=== PATIENT | female | born 1990 | race Caucasian/White ===

== ENCOUNTER 2016-06-11 20:44 | Emergency (ER) | payer OTHER, SELFPAY ==
[~2016-06-11 20:44] MED LIST: ACET50TA PO; DOCU10CA PO; DOCU10ELUD PO; IBUP80TA PO; PRENTAB9 PO; VITAPRTA PO
[2016-06-11] MEDS ORDERED: NAPROXEN 250 MG TAB As Ordered ONE (21:44)
--- NOTE | 2016-06-11 21:58 | EDDOCDS ---
Physician Documentation [facility] Name: Santa Carbajal Age: 25 yrs Sex: Female : 1990 Arrival Date: 06/11/2016 Time: 20:44 Bed I9 / Private MD: EMANI Farfan Disposition: 06/11 21:45 Critical Care: Critical care not applicable. le Disposition: 06/11/16 21:43 Discharged to Home/Self Care. Impression: Sprain of unspecified ligament of left ankle. - Condition is Stable. - Discharge Instructions: Elastic Bandage and RICE, Ankle Sprain. - Prescriptions for Naprosyn 500 mg Oral Tablet - take 1 tablet by ORAL route 2 times per day take with food; 30 tablet. - Medication Reconciliation, Isma Dejesus/Luis Alberto, Local Pharmacy Hours form. - Follow up: EMANI Farfan; When: 1 week; Reason: Recheck today's complaints, Continuance of care, If still having pain. - Problem is new. - Symptoms are unchanged. - Notes: Return to the ED for any further concerns Historical: - Allergies: no known allergies; - Home Meds: 1. Zoloft 25 mg Oral tab 1 tab once daily - PMHx: Depression; Anxiety; - PSHx: Hernia repair- Umbilical (April 19, 2015); ; Cholecystectomy; - Social history: Smoking status: Patient states was never smoker of tobacco. No barriers to communication noted. - Family history: Not pertinent. - : The pt / caregiver states he / she is not on anticoagulants. Home medication list is obtained from the patient. - Exposure Risk Screening:: None identified. 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 6 in. (167.64 cm) (R); Pain 6/10; 21:52 BP 146 / 70; Pulse 75; Resp 18; Temp 98.0; Pulse Ox 98% ; Pain 8/10; sew 20:46 Body Mass Index 35.19 (98.88 kg, 167.64 cm) gr2 MDM: 21:10 Ankle, Complete Ordered. EDMS 21:41 Naproxen 500 mg PO once; administer with food or milk ordered. le 21:41 Apply Air Cast to Patient. ordered. le Administered Medications: 21:45 Drug: Naproxen 500 mg [naproxen 250 mg tablet (2 tabs)] Route: PO; slm Signatures: Dispatcher [employer] EDMS Tracey Titus, POLYMER TESTER POLYMER TESTERMelanie Mcdonald RN RN Kasey Lund LPN LPN slm MTDD
--- NOTE | 2016-06-11 21:58 | EDDOCDS ---
Nurse's Notes [facility] Name: Santa Carbajal Age: 25 yrs Sex: Female : 1990 Arrival Date: 06/11/2016 Time: 20:44 Bed I9 Private MD: EMANI Farfan Diagnosis: Sprain of unspecified ligament of left ankle Presentation: 06/11 20:51 Presenting complaint: Patient states: I'm super clumsy and missed a step this after [facility] noon when I fell I fell awkward and twisted my left ankle. The patients lower extremity appears normal on examination. Adult Sepsis Screening: The patient does not have new or worsening altered mentation. Patient's respiratory rate is less than 22. Systolic blood pressure is greater than 100. Patient has a qSOFA score of 0- Negative Sepsis Screen. Suicide/Homicide risk assessment- the patient denies having any suicidal and/or homicidal ideations and does not present with any other emotional, behavioral or mental health complaints. Status: The patient is a dependent. Transition of care: patient was not received from another setting of care. 20:51 Acuity: TIA Level 4 [facility] 20:51 Method Of Arrival: Walkin/Carried/Asstd [facility] Triage Assessment: 20:53 General: Appears in no apparent distress, comfortable, Behavior is appropriate for age, [facility] cooperative. Pain: Location: left lateral ankle Pain currently is 8 out of 10 on a pain scale. HIV screening NA for this visit Offered previously. Musculoskeletal: Capillary refill is brisk No deformity noted Reports pain in left lateral ankle. Musculoskeletal: Range of motion limited in left ankle. 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 Zoloft 25 mg Oral tab 1 tab once daily - PMHx: Depression; Anxiety; - PSHx: Hernia repair- Umbilical (April 19, 2015); ; Cholecystectomy; - Social history: Smoking status: Patient states was never smoker of tobacco. No barriers to communication noted. - Family history: Not pertinent. - : The pt / caregiver states he / she is not on anticoagulants. Home medication list is obtained from the patient. - Exposure Risk Screening:: None identified. Screenin:56 Screening information is obtained from the patient. Fall risk: No risks identified. slm Assistance ADL's: requires no assistance with activities of daily living. Abuse/DV Screen: The patient / caregiver reports he/she is: not in a situation that causes fear, pain or injury. Nutritional screening: No deficits noted. Advance Directives: Currently, there is no health care proxy. There is no active DNR order. There is no living will. There is no Power of Kiln Car Unloader. Advance directive information has not previously been placed in an [facility] medical record. home support is adequate. Assessment: 21:55 General: Appears in no apparent distress, comfortable, Behavior is cooperative. Pain: slm Location: left ankle. Musculoskeletal: Circulation, motion, and sensation intact No deformity noted. 21:57 Musculoskeletal: Signs and Symptoms of Compartment Syndrome: no signs of compartment slm syndrome. Vital Signs: 20:46 BP 142 / 77; Pulse 96; Resp 18 S; Temp 98.8(O); Pulse Ox 99% on R/A; Weight 98.88 kg gr2 (R); Height 5 ft. 6 in. (167.64 cm) (R); Pain 6/10; 21:52 BP 146 / 70; Pulse 75; Resp 18; Temp 98.0; Pulse Ox 98% ; Pain 8/10; sew 20:46 Body Mass Index 35.19 (98.88 kg, 167.64 cm) gr2 Vitals: 20:46 Log In Time: June 11, 2016 at 20:46. gr2 ED Course: 20:45 Patient visited by Darlene Morton. gr2 20:45 Patient moved to Waiting gr2 20:46 ARUNA Farfan is Private Physician. gr2 20:49 Patient visited by Darlene Morton. gr2 20:49 Patient moved to Pre RCE gr2 20:52 Triage Initiated cjh 21:18 Patient moved to Radiology clive 21:26 Patient moved to I9 / sew 21:27 [facility] le 21:29 Patient visited by Tracey Titus FNP. le 21:29 Patient visited by Tracey Titus FNP. le 21:43 EMANI Farfan is Referral Physician. le 21:45 Kasey Madsen LPN is Primary Nurse. slm 21:51 Patient visited by Paige Morales. sew 21:53 Patient visited by Paige Morales. sew 21:57 Patient visited by Kasey Madsen LPN. slm 21:57 The patient / caregiver is instructed regarding the plan of care and ED course. Patient slm has correct armband on for positive identification. Bed in low position. Call light in reach. Side rails up X 1. 21:57 No IV's were initiated during this patient's visit. No procedures done that require slm assistance. Administered Medications: 21:45 Drug: Naproxen 500 mg [naproxen 250 mg tablet (2 tabs)] Route: PO; slm Order Results: There are currently no results for this order. Outcome: 21:43 Discharge ordered by Provider. le 21:56 Discharge Assessment: Patient awake, alert and oriented x 3. No cognitive and/or slm functional deficits noted. Patient verbalized understanding of disposition instructions. patient administered narcotics - no. The following High Risk Discharge criteria are identified:. Condition: good. Discharge instructions given to patient, Instructed on discharge instructions, follow up and referral plans. medication usage, Rest, Ice, Compression and Elevation. Demonstrated understanding of instructions, medications, Pt was receptive of discharge instructions/ teaching. Prescriptions given X 1. No special radiology studies were completed. Property :Personal belongings accompany Pt. 21:57 Patient left the ED. slm Signatures: Jens Dave Lisa, CLINICAL RESEARCH COORDINATOR CLINICAL RESEARCH COORDINATORMelanie Mcdonald RN RN [facility] Paige Morales [facility] Darlene Morton gr2 Kasey Madsen LPN LPN slm MTDD
--- NOTE | 2016-06-12 01:12 | REP ---
Clinical: Trauma. Injury. Technique: AP, lateral, bilateral oblique views of the left ankle. Findings: Marked lateral soft tissue swelling consistent with inversion injury. No acute fracture or dislocation. Joint spaces and ankle mortise are intact. Impression: Lateral soft tissue swelling. No acute fracture or dislocation. Signed by Hesham Shah MD 06/12/2016 01:04 A
--- NOTE | 2016-06-13 22:58 | EDDOCDS ---
Physician Documentation Name: Santa Carbajal Age: 25 yrs Sex: Female : 1990 Arrival Date: 06/11/2016 Time: 20:44 Bed I9 / Private MD: EMANI Farfan Disposition: 06/11 21:45 Critical Care: Critical care not applicable. le Disposition: 06/11/16 21:43 Discharged to Home/Self Care. Impression: Sprain of unspecified ligament of left ankle. - Condition is Stable. - Discharge Instructions: Elastic Bandage and RICE, Ankle Sprain. - Prescriptions for Naprosyn 500 mg Oral Tablet - take 1 tablet by ORAL route 2 times per day take with food; 30 tablet. - Medication Reconciliation, Isma Dejesus/Luis Alberto, Local Pharmacy Hours form. - Follow up: EMANI Farfan; When: 1 week; Reason: Recheck today's complaints, Continuance of care, If still having pain. - Problem is new. - Symptoms are unchanged. - Notes: Return to the ED for any further concerns Historical: - Allergies: no known allergies; - Home Meds: 1. Zoloft 25 mg Oral tab 1 tab once daily - PMHx: Depression; Anxiety; - PSHx: Hernia repair- Umbilical (April 19, 2015); ; Cholecystectomy; - Social history: Smoking status: Patient states was never smoker of tobacco. No barriers to communication noted. - Family history: Not pertinent. - : The pt / caregiver states he / she is not on anticoagulants. Home medication list is obtained from the patient. - Exposure Risk Screening:: None identified. 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 6 in. (167.64 cm) (R); Pain 6/10; 21:52 BP 146 / 70; Pulse 75; Resp 18; Temp 98.0; Pulse Ox 98% ; Pain 8/10; sew 20:46 Body Mass Index 35.19 (98.88 kg, 167.64 cm) gr2 MDM: 21:10 Ankle, Complete Ordered. EDMS 21:41 Naproxen 500 mg PO once; administer with food or milk ordered. le 21:41 Apply Air Cast to Patient. ordered. le 22:12 Financial registration complete. [email or web address] 22:12 Undo -Financial registration. ks16 22:13 [facility] Payment Agreement was scanned into [employer] and attached to record. ks16 22:14 Financial registration complete. [facility] 06/12 12:37 T-Sheet-- Draft Copy was scanned into [employer] and attached to record. gb Administered Medications: 06/11 21:45 Drug: Naproxen 500 mg [naproxen 250 mg tablet (2 tabs)] Route: PO; slm Signatures: Dispatcher [employer] EDMS Dorene Lund, Reg Reg gb Tracey Titus, NISSAN SALES CONSULTANT NISSAN SALES CONSULTANT Melanie Moreira RN RN cj Kasey Madsen,TAIL BOARD MAN TAIL BOARD MAN slm Yana Bonilla, Reg Reg ks16 The chart was reviewed and I authenticate all verbal orders and agree with the evaluation and treatment provided.Attachments: 22:13 [facility] Payment Agreement [facility] 06/12 12:37 T-Sheet-- Draft Copy gb Chart Complete MTDD
--- NOTE | 2016-06-13 22:58 | EDDOCDS ---
Physician Documentation [facility] Name: Santa Carbajal Age: 25 yrs Sex: Female : 1990 Arrival Date: 06/11/2016 Time: 20:44 Bed I9 / Private MD: EMANI Farfan Disposition: 06/11 21:45 Critical Care: Critical care not applicable. le Disposition: 06/11/16 21:43 Discharged to Home/Self Care. Impression: Sprain of unspecified ligament of left ankle. - Condition is Stable. - Discharge Instructions: Elastic Bandage and RICE, Ankle Sprain. - Prescriptions for Naprosyn 500 mg Oral Tablet - take 1 tablet by ORAL route 2 times per day take with food; 30 tablet. - Medication Reconciliation, Isma Dejesus/Luis Alberto, Local Pharmacy Hours form. - Follow up: EMANI Farfan; When: 1 week; Reason: Recheck today's complaints, Continuance of care, If still having pain. - Problem is new. - Symptoms are unchanged. - Notes: Return to the ED for any further concerns Historical: - Allergies: no known allergies; - Home Meds: 1. Zoloft 25 mg Oral tab 1 tab once daily - PMHx: Depression; Anxiety; - PSHx: Hernia repair- Umbilical (April 19, 2015); ; Cholecystectomy; - Social history: Smoking status: Patient states was never smoker of tobacco. No barriers to communication noted. - Family history: Not pertinent. - : The pt / caregiver states he / she is not on anticoagulants. Home medication list is obtained from the patient. - Exposure Risk Screening:: None identified. 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 6 in. (167.64 cm) (R); Pain 6/10; 21:52 BP 146 / 70; Pulse 75; Resp 18; Temp 98.0; Pulse Ox 98% ; Pain 8/10; sew 20:46 Body Mass Index 35.19 (98.88 kg, 167.64 cm) gr2 MDM: 21:10 Ankle, Complete Ordered. EDMS 21:41 Naproxen 500 mg PO once; administer with food or milk ordered. le 21:41 Apply Air Cast to Patient. ordered. le 22:12 Financial registration complete. [email or web address] 22:12 Undo -Financial registration. ks16 22:13 [facility] Payment Agreement was scanned into [employer] and attached to record. ks16 22:14 Financial registration complete. [facility] 06/12 12:37 T-Sheet-- Draft Copy was scanned into [email or web address] and attached to record. gb Administered Medications: 06/11 21:45 Drug: Naproxen 500 mg [naproxen 250 mg tablet (2 tabs)] Route: PO; slm Signatures: Dispatcher [employer] EDMS Dorene Lund, Reg Reg gb Tracey Titus, TEACHER VOCAL TEACHER VOCAL Melanie Moreira RN RN cj Kasey Madsen,DYE REEL OPERATOR HELPER DYE REEL OPERATOR HELPER slm Yana Bonilla, Reg Reg ks16 The chart was reviewed and I authenticate all verbal orders and agree with the evaluation and treatment provided.Attachments: 22:13 [facility] Payment Agreement [facility] 06/12 12:37 T-Sheet-- Draft Copy gb Chart Complete MTDD
--- NOTE | 2016-06-13 22:58 | EDDOCDS ---
Nurse's Notes [facility] Name: Santa Carbajal Age: 25 yrs Sex: Female : 1990 Arrival Date: 06/11/2016 Time: 20:44 Bed I9 Private MD: EMANI Farfan Diagnosis: Sprain of unspecified ligament of left ankle Presentation: 06/11 20:51 Presenting complaint: Patient states: I'm super clumsy and missed a step this after [facility] noon when I fell I fell awkward and twisted my left ankle. The patients lower extremity appears normal on examination. Adult Sepsis Screening: The patient does not have new or worsening altered mentation. Patient's respiratory rate is less than 22. Systolic blood pressure is greater than 100. Patient has a qSOFA score of 0- Negative Sepsis Screen. Suicide/Homicide risk assessment- the patient denies having any suicidal and/or homicidal ideations and does not present with any other emotional, behavioral or mental health complaints. Status: The patient is a dependent. Transition of care: patient was not received from another setting of care. 20:51 Acuity: TIA Level 4 [facility] 20:51 Method Of Arrival: Walkin/Carried/Asstd [facility] Triage Assessment: 20:53 General: Appears in no apparent distress, comfortable, Behavior is appropriate for age, [facility] cooperative. Pain: Location: left lateral ankle Pain currently is 8 out of 10 on a pain scale. HIV screening NA for this visit Offered previously. Musculoskeletal: Capillary refill is brisk No deformity noted Reports pain in left lateral ankle. Musculoskeletal: Range of motion limited in left ankle. 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 Zoloft 25 mg Oral tab 1 tab once daily - PMHx: Depression; Anxiety; - PSHx: Hernia repair- Umbilical (April 19, 2015); ; Cholecystectomy; - Social history: Smoking status: Patient states was never smoker of tobacco. No barriers to communication noted. - Family history: Not pertinent. - : The pt / caregiver states he / she is not on anticoagulants. Home medication list is obtained from the patient. - Exposure Risk Screening:: None identified. Screenin:56 Screening information is obtained from the patient. Fall risk: No risks identified. slm Assistance ADL's: requires no assistance with activities of daily living. Abuse/DV Screen: The patient / caregiver reports he/she is: not in a situation that causes fear, pain or injury. Nutritional screening: No deficits noted. Advance Directives: Currently, there is no health care proxy. There is no active DNR order. There is no living will. There is no Power of Primary Special Educator. Advance directive information has not previously been placed in an [facility] medical record. home support is adequate. Assessment: 21:55 General: Appears in no apparent distress, comfortable, Behavior is cooperative. Pain: slm Location: left ankle. Musculoskeletal: Circulation, motion, and sensation intact No deformity noted. 21:57 Musculoskeletal: Signs and Symptoms of Compartment Syndrome: no signs of compartment slm syndrome. Vital Signs: 20:46 BP 142 / 77; Pulse 96; Resp 18 S; Temp 98.8(O); Pulse Ox 99% on R/A; Weight 98.88 kg gr2 (R); Height 5 ft. 6 in. (167.64 cm) (R); Pain 6/10; 21:52 BP 146 / 70; Pulse 75; Resp 18; Temp 98.0; Pulse Ox 98% ; Pain 8/10; sew 20:46 Body Mass Index 35.19 (98.88 kg, 167.64 cm) gr2 Vitals: 20:46 Log In Time: June 11, 2016 at 20:46. gr2 ED Course: 20:45 Patient visited by Darlene Morton. gr2 20:45 Patient moved to Waiting gr2 20:46 ARUNA Farfan is Private Physician. gr2 20:49 Patient visited by Darlene Morton. gr2 20:49 Patient moved to Pre RCE gr2 20:52 Triage Initiated cjh 21:18 Patient moved to Radiology clive 21:26 Patient moved to I9 / sew 21:27 Tracey Titus FNP is [facility]. le 21:29 Patient visited by Tracey Titus FNP. le 21:29 Patient visited by Tracey Titus FNP. le 21:43 EMANI Farfan is Referral Physician. le 21:45 Kasey Madsen LPN is Primary Nurse. slm 21:51 Patient visited by Paige Morales. sew 21:53 Patient visited by Paige Morales. sew 21:57 Patient visited by Kasey Madsen LPN. slm 21:57 The patient / caregiver is instructed regarding the plan of care and ED course. Patient slm has correct armband on for positive identification. Bed in low position. Call light in reach. Side rails up X 1. 21:57 No IV's were initiated during this patient's visit. No procedures done that require slm assistance. 22:13 [facility] Payment Agreement was scanned into [employer] and attached to record. ks16 06/12 01:19 Ankle, Complete Returned. EDMS 12:37 T-Sheet-- Draft Copy was scanned into [employer] and attached to record. gb Administered Medications: 06/11 21:45 Drug: Naproxen 500 mg [naproxen 250 mg tablet (2 tabs)] Route: PO; slm Order Results: Radiology Order: Ankle, Complete Test: Ankle, Complete REASON FOR EXAMINATION: LEFT ANKLE INJURY; Clinical: Trauma. Injury.; ; Technique: AP, lateral, bilateral oblique views of the left ankle.; ; Findings:; Marked lateral soft tissue swelling consistent with inversion injury. No acute; fracture or dislocation. Joint spaces and ankle mortise are intact.; ; Impression:; Lateral soft tissue swelling. No acute fracture or dislocation.; ; ; Signed by; Hesham Shah MD 06/12/2016 01:04 A; Outcome: 21:43 Discharge ordered by Provider. le 21:56 Discharge Assessment: Patient awake, alert and oriented x 3. No cognitive and/or slm functional deficits noted. Patient verbalized understanding of disposition instructions. patient administered narcotics - no. The following High Risk Discharge criteria are identified:. Condition: good. Discharge instructions given to patient, Instructed on discharge instructions, follow up and referral plans. medication usage, Rest, Ice, Compression and Elevation. Demonstrated understanding of instructions, medications, Pt was receptive of discharge instructions/ teaching. Prescriptions given X 1. No special radiology studies were completed. Property :Personal belongings accompany Pt. 21:57 Patient left the ED. slm Signatures: Dispatcher [employer] EDMS Jens Dave Gloria, Reg Reg Tracey Mcknight, Elmer Worrelle,RN RN cjpina Morales, Darlene Montgomery gr2 Kasey Madsen,BOWLING ALLEY FLOORS INSTALLER BOWLING ALLEY FLOORS INSTALLER slYana Nair, Reg Reg [email or web address] Chart Complete MTDD
== END 2016-06-11 21:57 | disposition home or self-care (01) ==
LOC: M ED 20:44
DX: S93.402A Sprain of unspecified ligament of left ankle, initial encounter (principal); F41.9 Anxiety disorder, unspecified; F32.9 Major depressive disorder, single episode, unspecified; Z79.899 Other long term (current) drug therapy; X50.1XXA Overexertion from prolonged static or awkward postures, initial encounter; Y92.019 Unspecified place in single-family (private) house as the place of occurrence of the external cause; Y93.01 Activity, walking, marching and hiking; Y99.9 Unspecified external cause status